=== PATIENT | male | born 2000 ===

== ENCOUNTER 2023-07-05 10:19 | Emergency (ER) | payer SELFPAY ==
[2023-07-05] MEDS: Ibuprofen 600 MG Tab PO ONE (10:35)
[2023-07-05 11:19] LABS: CORONAVIRUS COVID-19 NAA NEGATIVE (NEGATIVE); INFLUENZA A NAA NEGATIVE (NEGATIVE); INFLUENZA B NAA NEGATIVE (NEGATIVE)
== END 2023-07-05 11:50 | disposition home or self-care (01) ==
LOC: MW.ED 10:19
DX: J32.9 Chronic sinusitis, unspecified (principal); Z86.16 Personal history of COVID-19; Z88.0 Allergy status to penicillin; Z88.2 Allergy status to sulfonamides; Z88.8 Allergy status to other drugs, medicaments and biological substances
CPT/HCPCS: 0240U; 71045; 87651; 99283; A9270